=== PATIENT | female | born 1975 | race Caucasian/White ===

== ENCOUNTER 2019-03-14 07:45 | Emergency (ER) | payer SELFPAY ==
[2019-03-14 07:54] VITALS: BP 108/38
--- NOTE | 2019-03-14 08:34 | UC ---
Throat Pain/Nasal Marc HPI - HPI Summary HPI Summary: daughter has strep, patient has had sore throat for past few days not responding to OTC treatment - History of Current Complaint Chief Complaint: UCRespiratory Stated Complaint: SORE THROAT Time Seen by Provider: 03/14/19 08:27 Hx Obtained From: Patient Hx Last Menstrual Period: 03/08/19 Onset/Duration: Sudden Onset, Lasting Days Severity: Moderate Pain Intensity: 3 Associated Signs & Symptoms: Positive: Dysphagia, Sinus Discomfort - Allergies/Home Medications Allergies/Adverse Reactions: Allergies Allergy/AdvReac Type Severity Reaction Status Date / Time chocolate flavor Allergy GI Upset Verified 03/14/19 08:00 codeine Allergy Dizziness Verified 03/14/19 08:00 erythromycin base Allergy Hives Verified 03/14/19 08:00 meperidine Allergy Difficulty Verified 03/14/19 08:00 Breathing morphine Allergy Difficulty Verified 03/14/19 08:00 Breathing Penicillins Allergy Hives Verified 03/14/19 08:00 Oats Allergy Intermediate Rash Uncoded 03/14/19 07:57 salmon Allergy Intermediate Nausea Uncoded 03/14/19 07:57 Shellfish Allergy Intermediate Hives Uncoded 03/14/19 07:57 swordfish Allergy Intermediate Nausea Uncoded 03/14/19 07:57 PMH/Surg Hx/FS Hx/Imm Hx Previously Healthy: Yes Other History Of: Negative For: Anticoagulant Therapy - Surgical History Surgical History: Yes Surgery Procedure, Year, and Place: external fixator 1994 left arm.-[facility]. Lumpectomy right breast 1992 (benign)- [facility] [place]. wisdom teeth-DR. BAUTISTA'S OFFICE - Family History Known Family History: Positive: Hypertension - Social History Alcohol Use: Occasionally Substance Use Type: None Smoking Status (MU): Never Smoked Tobacco - Immunization History Most Recent Influenza Vaccination: due Most Recent Tetanus Shot: 06/07/13 Most Recent Pneumonia Vaccination: n/a Review of Systems All Other Systems Reviewed And Are Negative: Yes ENT: Positive: Sore Throat Is Patient Immunocompromised?: No Physical Exam Triage Information Reviewed: Yes Appearance: Well-Appearing, Well-Nourished, Pain Distress Vital Signs: Initial Vital Signs Temp 97.4 F 03/14/19 07:48 Pulse 65 03/14/19 07:48 Resp 16 03/14/19 07:48 BP 108/38 03/14/19 07:48 Pulse Ox 99 03/14/19 07:48 Vital Signs Reviewed: Yes Eye Exam: Normal ENT: Positive: Pharyngeal erythema, Tonsillar swelling Dental Exam: Normal Neck exam: Normal Respiratory Exam: Normal Cardiovascular Exam: Normal Abdominal Exam: Normal Bowel Sounds: Positive: Present Musculoskeletal Exam: Normal Neurological Exam: Normal Psychological Exam: Normal Skin Exam: Normal Throat Pain/Nasal Course/Dx - Course Course Of Treatment: hx obtained, exam performed ,meds reviewed, rapid strep was positive. treated with keflex - Differential Dx/Diagnosis Differential Diagnosis/HQI/PQRI: Influenza, Pharyngitis, Sinusitis, URI Provider Diagnosis: Strep pharyngitis Discharge - Sign-Out/Discharge Documenting (check all that apply): Patient Departure All imaging exams completed and their final reports reviewed: No Studies - Discharge Plan Condition: Stable Disposition: HOME Prescriptions: Cephalexin CAP* [Keflex CAP*] 500 mg PO BID #20 cap Patient Education Materials: Strep Throat (ED) Referrals: Umu Hylton MD [Primary Care Provider] - Additional Instructions: 1. take the medication as prescribed. 2. Increase fluids and get plenty of rest. 3. Follow up if not improving - Billing Disposition and Condition Condition: STABLE Disposition: Home - Attestation Statements Provider Attestation: I was available for consult. This patient was seen by the FRANCK. The patient was not presented to , seen by or examined by ca -Ashok Reddy MD
== END 2019-03-14 08:34 | disposition home or self-care (01) ==
LOC: UCEAST 07:45
DX: J02.0 Streptococcal pharyngitis (principal); Z88.8 Allergy status to other drugs, medicaments and biological substances; Z88.1 Allergy status to other antibiotic agents; Z88.5 Allergy status to narcotic agent; Z88.0 Allergy status to penicillin; Z91.013 Allergy to seafood
CPT/HCPCS: 87651; 99212; G0463

== ENCOUNTER 2019-12-09 07:50 | Emergency (ER) | payer OTHER ==
[2019-12-09 08:07] VITALS: BP 123/74
--- NOTE | 2019-12-09 08:56 | UC ---
Throat Pain/Nasal Marc HPI - HPI Summary HPI Summary: 44-year-old woman comes in with chief complaint of upper respiratory tract infection symptoms for about 4 days. She's got green rhinorrhea maxillary sinus pressure postnasal drip. She also does have some cough. No complaint of any chest congestion or shortness of breath. She does have a sore throat. She reports that [id number] medicines help some with the symptoms. - History of Current Complaint Chief Complaint: UCGeneralIllness Stated Complaint: SINUS CONGESTION,EAR PAIN Time Seen by Provider: 12/09/19 08:46 Hx Last Menstrual Period: 11/30/19 Pain Intensity: 1 - Allergies/Home Medications Allergies/Adverse Reactions: Allergies Allergy/AdvReac Type Severity Reaction Status Date / Time erythromycin base Allergy Severe Hives Verified 12/09/19 08:01 meperidine Allergy Severe Difficulty Verified 12/09/19 08:01 Breathing morphine Allergy Severe Difficulty Verified 12/09/19 08:01 Breathing Penicillins Allergy Severe Hives Verified 12/09/19 08:01 chocolate flavor Allergy Mild GI Upset Verified 12/09/19 08:01 codeine Allergy Mild Dizziness Verified 12/09/19 08:01 Oats Allergy Intermediate Rash Uncoded 12/09/19 08:01 salmon Allergy Intermediate Nausea Uncoded 12/09/19 08:01 Shellfish Allergy Intermediate Hives Uncoded 12/09/19 08:01 swordfish Allergy Intermediate Nausea Uncoded 12/09/19 08:01 PMH/Surg Hx/FS Hx/Imm Hx Previously Healthy: Yes Other History Of: Negative For: Anticoagulant Therapy - Surgical History Surgical History: Yes Surgery Procedure, Year, and Place: external fixator 1994 left arm.-[facility] [place]. Lumpectomy right breast 1992 (benign)- [facility] [place]. wisdom teeth-DR. BAUTISTA'S OFFICE - Family History Known Family History: Positive: Hypertension - Social History Alcohol Use: Occasionally Alcohol Amount: glass of wine 2-3 x per week Substance Use Type: None Smoking Status (MU): Never Smoked Tobacco - Immunization History Most Recent Influenza Vaccination: due Most Recent Tetanus Shot: 06/07/13 Most Recent Pneumonia Vaccination: n/a Review of Systems All Other Systems Reviewed And Are Negative: Yes Constitutional: Positive: Other - SEE HPI Skin: Positive: Negative Eyes: Positive: Negative ENT: Positive: Sore Throat, Nasal Discharge, Sinus Congestion, Sinus Pain/ Tenderness Respiratory: Positive: Negative Cardiovascular: Positive: Negative Gastrointestinal: Positive: Negative Motor: Positive: Negative Neurovascular: Positive: Negative Musculoskeletal: Positive: Negative Neurological: Positive: Negative Psychological: Positive: Negative Is Patient Immunocompromised?: No Physical Exam Triage Information Reviewed: Yes Appearance: No Pain Distress, Well-Nourished, Ill-Appearing - MILD Vital Signs: Initial Vital Signs Temp 98.8 F 12/09/19 08:01 Pulse 85 12/09/19 08:01 Resp 18 12/09/19 08:01 BP 123/74 12/09/19 08:01 Pulse Ox 99 12/09/19 08:01 Vital Signs Reviewed: Yes Eye Exam: Normal Eyes: Positive: Conjunctiva Clear ENT: Positive: Pharyngeal erythema, Nasal congestion, Nasal drainage, TMs normal , Sinus tenderness Neck: Positive: Supple Respiratory: Positive: Lungs clear, Normal breath sounds, No respiratory distress Cardiovascular: Positive: RRR Musculoskeletal: Positive: Strength Intact, ROM Intact Neurological: Positive: Alert Psychological: Positive: Age Appropriate Behavior Skin Exam: Normal Throat Pain/Nasal Course/Dx - Course Course Of Treatment: DISCUSSED VIRAL VERSES BACTERIAL INFECTIONS AND THE ROLE OF ANTIBIOTICS. THE PATIENT PREFERS TO HAVE AN ANTIBIOTIC RX TO START IF NOT IMPROVING. Patient reports she has taken Keflex in the past with no reactions. Therefore we will prescribe Omnicef for sinusitis. - Differential Dx/Diagnosis Provider Diagnosis: Sinusitis Discharge ED - Sign-Out/Discharge Documenting (check all that apply): Patient Departure All imaging exams completed and their final reports reviewed: No Studies - Discharge Plan Condition: Stable Disposition: HOME Prescriptions: Cefdinir [Cefdinir 300 MG CAP] 300 mg PO BID #20 cap Patient Education Materials: Sinusitis (ED) Referrals: Umu Hylton MD [Primary Care Provider] - Additional Instructions: FOLLOW UP WITH YOUR DOCTOR IF NOT COMPLETELY IMPROVED. GET REEVALUATED SOONER IF NOT IMPROVED OR WORSE OR ANY QUESTIONS OR CONCERNS. - Billing Disposition and Condition Condition: STABLE Disposition: Home
== END 2019-12-09 09:00 | disposition home or self-care (01) ==
LOC: UCEAST 07:50
DX: J32.9 Chronic sinusitis, unspecified (principal); J02.9 Acute pharyngitis, unspecified; Z88.0 Allergy status to penicillin; Z88.1 Allergy status to other antibiotic agents; Z88.5 Allergy status to narcotic agent; Z91.018 Allergy to other foods; Z91.02 Food additives allergy status; Z91.013 Allergy to seafood
CPT/HCPCS: 99212; G0463

== ENCOUNTER 2020-01-21 08:03 | Emergency (ER) | payer OTHER ==
[2020-01-21 08:13] VITALS: BP 115/69
--- NOTE | 2020-01-21 10:27 | UC ---
Skin Complaint HPI - HPI Summary HPI Summary: HAS HAD PAINFUL LYMPH NODES IN THE BACK OF HER RIGHT NECK AND BEHIND HER RIGHT EAR FOR A FEW DAYS. NOTICED WHAT SEEMS LIKE AN INFECTED HAIR FOLLICLE ON THE POSTERIOR RIGHT SIDE OF HER HEAD. STATES IT SPONTANEOUSLY DRAINED LAST NIGHT. NO FEVERS. NO PREVIOUS ABSCESSES OR KNOWN HISTORY OF MRSA. - History of Current Complaint Chief Complaint: UCGeneralIllness Time Seen by Provider: 01/21/20 09:35 Stated Complaint: SWOLLEN GLANDS Hx Obtained From: Patient Hx Last Menstrual Period: 01/17/20 Onset/Duration: Gradual Onset, Lasting Days, Still Present Timing: Constant Onset Severity: Moderate Current Severity: Moderate Pain Intensity: 4 Pain Scale Used: 0-10 Numeric Character: Pain, Redness, Raised Aggravating Factor(s): Touch Alleviating Factor(s): Nothing Associated Signs & Symptoms: Positive: Tenderness - Allergy/Home Medications Allergies/Adverse Reactions: Allergies Allergy/AdvReac Type Severity Reaction Status Date / Time erythromycin base Allergy Severe Hives Verified 12/09/19 13:10 meperidine Allergy Severe Difficulty Verified 12/09/19 13:10 Breathing morphine Allergy Severe Difficulty Verified 12/09/19 13:10 Breathing Penicillins Allergy Severe Hives Verified 12/09/19 13:10 codeine Allergy Mild Dizziness Verified 12/09/19 13:10 Oats Allergy Intermediate Rash Uncoded 12/09/19 13:10 salmon Allergy Intermediate Nausea Uncoded 12/09/19 13:10 Shellfish Allergy Intermediate Hives Uncoded 12/09/19 13:10 swordfish Allergy Intermediate Nausea Uncoded 12/09/19 13:10 chocolate Allergy skin Uncoded 01/21/20 08:15 reaction and vomiting Home Medications: Home Medications Fluticasone NASAL SPRAY 50MCG* [Flonase NASAL SPRAY 50MCG*] 2 spray BOTH NARES DAILY PRN 05/24/15 [History Confirmed 01/21/20] Sulfamethox/Trimethoprim DS* [Bactrim DS 800/160 TAB*] 1 tab PO BID #20 tab 05/06 [Rx] PMH/Surg Hx/FS Hx/Imm Hx Previously Healthy: Yes Other History Of: Negative For: Anticoagulant Therapy - Surgical History Surgical History: Yes Surgery Procedure, Year, and Place: external [place]ator 1994 [place] [place] right breast 1992 (benign)- [facility]. wisdom teeth-DR. MICHELE'S OFFICE - Family History Known Family History: Positive: Hypertension - Social History Alcohol Use: Weekly Alcohol Amount: 1 glassw 2-3 x /wk Substance Use Type: None Smoking Status (MU): Never Smoked Tobacco - Immunization History Most Recent Influenza Vaccination: due Most Recent Tetanus Shot: 06/07/13 Most Recent Pneumonia Vaccination: n/a Review of Systems All Other Systems Reviewed And Are Negative: Yes Constitutional: Positive: Negative Skin: Positive: Other - ABSCESS Respiratory: Positive: Negative Cardiovascular: Positive: Negative Gastrointestinal: Positive: Negative Physical Exam Triage Information Reviewed: Yes Appearance: Well-Appearing, No Pain Distress, Well-Nourished Vital Signs: Initial Vital Signs Temp 98 F 01/21/20 08:10 Pulse 80 01/21/20 08:10 Resp 16 01/21/20 08:10 BP 115/69 01/21/20 08:10 Pulse Ox 100 01/21/20 08:10 Vital Signs Reviewed: Yes Eyes: Positive: Conjunctiva Clear ENT: Positive: Hearing grossly normal Neck: Positive: Supple, Tenderness @ - RIGHT POSTERIOR CERVICAL LAD, Enlarged Nodes @ - RIGHT POSTERIOR CERVICAL LAD Respiratory: Positive: No respiratory distress, No accessory muscle use Cardiovascular: Positive: Pulses Normal Abdomen Description: Positive: Soft Musculoskeletal: Positive: No Edema Neurological: Positive: Alert Psychological: Positive: Age Appropriate Behavior Skin: Negative: Rashes Course/Dx - Course Course Of Treatment: PATIENT HAS A SMALL ABSCESS ON THE RIGHT POSTERIOR SIDE OF HER SCALP. NOT AMENABLE TO I&D. HER ENLARGED RIGHT POSTERIOR LYMPH NODE IS LIKELY DUE TO THIS ACUTE INFECTION AND SHOULD RESOLVE WITH TIME. ANTIBIOTICS TO COVER FOR THE INFECTION. ADVISED HOT COMPRESSES/SHOWERS. OTC ANALGESICS NEEDED FOR DISCOMFORT. - Diagnoses Provider Diagnosis: Abscess of scalp, Posterior cervical lymphadenopathy Discharge ED - Sign-Out/Discharge Documenting (check all that apply): Patient Departure All imaging exams completed and their final reports reviewed: No Studies - Discharge Plan Condition: Stable Disposition: HOME Prescriptions: Sulfamethox/Trimethoprim DS* [Bactrim DS 800/160 TAB*] 1 tab PO BID #20 tab Patient Education Materials: Lymphadenopathy (ED), Abscess (ED) Referrals: Umu Hylton MD [Primary Care Provider] - If Needed Additional Instructions: LYMPH NODES IN YOUR NECK ARE LIKELY CAUSED BY THE SKIN INFECTION ON YOUR HEAD. TAKE THE ANTIBIOTICS TWICE DAILY FOR THE FULL 10 DAYS. HOT COMPRESSES/SHOWERS A COUPLE OF TIMES A DAY. OTC ANALGESICS NEEDED FOR DISCOMFORT. SEEK FOLLOW- UP IF YOU DEVELOP FURTHER SPREADING REDNESS OF THE SKIN, PERSISTENT PURULENT DRAINAGE, INCREASED PAIN, FEVER OR ANY OTHER CONCERNING SYMPTOMS. IF THE LYMPHADENOPATHY DOES NOT RESOLVE IN A FEW WEEKS FOLLOW-UP WITH YOUR PCP. - Billing Disposition and Condition Condition: STABLE Disposition: Home
== END 2020-01-21 09:52 | disposition home or self-care (01) ==
LOC: UCEAST 08:03
DX: L02.811 Cutaneous abscess of head [any part, except face] (principal); R59.1 Generalized enlarged lymph nodes; Z88.0 Allergy status to penicillin; Z88.1 Allergy status to other antibiotic agents; Z88.5 Allergy status to narcotic agent; Z91.018 Allergy to other foods; Z91.013 Allergy to seafood
CPT/HCPCS: 99212; G0463